=== PATIENT | female | born 1950 | race Two or more races ===

== ENCOUNTER 2018-12-21 09:32 | Emergency (ER) | payer MEDICARE, OTHER ==
[~2018-12-21] VITALS: Ht 154.9 cm; Wt 70.3 kg
[~2018-12-21 09:32] MED LIST: ADDERAL20 MG ORAL; BP pill; CYCLOBENZAPRINE10 MG ORAL; IBUPROFEN600 MG ORAL; NORCO 5-325 TA1 EAC1 ORAL; Vitamin d; ZOLOFT100 MG ORAL; [UNRECOGNIZED DRUG - REMARK]; cholesterol pill
[2018-12-21 09:40] VITALS: BP 135/114
--- NOTE | 2018-12-21 09:45 | NUR ---
ED Nurse Note: pt presents to ED with L knee pain because pt fell yesterday AM. Pt reports the pain is a 9/10. pt states that she tripped and fell, and that she also tripped and fell one month ago. pt denies LOC, there were not witnesses to her fall. pt denies feeling lightheaded, or experiencing any visual disturbances that led to the fall. There is bruising noted on her right foot. her vital signs are 134/114, 96% on RA, HR: 82.
[2018-12-21 09:50] VITALS: BP 135/114
[2018-12-21] MEDS ORDERED: HYDROcodone/Acetamin 5/325 tab ORAL ONE (10:00)
[2018-12-21] MEDS ORDERED: UNOBMED (10:09)
[2018-12-21] MEDS ORDERED: Ketorolac 60mg Inj IM ONE (10:15)
--- NOTE | 2018-12-21 10:27 | Emergency Room Report ---
History of Present Illness General Chief Complaint: Multiple Trauma/Fall Source: Patient, Medical Record Present Illness HPI Patient is a 68-year-old female presented after fall. Patient reports having injury to the left knee as well as to her right foot. She had not been vomiting. She denies any head injury. Patient states that she fell from standing. She denies other locations of pain. Allergies: Coded Allergies: NO KNOWN ALLERGIES (Unverified Allergy, Unknown, 01/31/15) Patient History Past Medical History: see triage record Now: No Reviewed Nursing Documentation: PMH: Agreed Nursing Documentation-PMH Past Medical History: No History, Except For Hx Hypertension: Yes Review of Systems All Other Systems: negative except mentioned in HPI Physical Exam Vital Signs Date Time Temp Pulse Resp B/P (MAP) Pulse Ox O2 Delivery O2 Flow Rate FiO2 12/21/18 09:40 97.5 82 16 135/114 (121) 100 Room Air Sp02 EP Interpretation: reviewed, normal General Appearance: normal inspection, well appearing, no apparent distress, alert, GCS 15 Head: atraumatic ENT: normal ENT inspection, hearing grossly normal, normal voice Neck: normal inspection, full range of motion, supple, no bony tend Respiratory: normal inspection, lungs clear, normal breath sounds, no respiratory distress, no retraction, no wheezing Cardiovascular #1: regular rate, rhythm, no edema Gastrointestinal: normal inspection, normal bowel sounds, non tender, soft, no guarding, no hernia Genitourinary: no CVA tenderness Musculoskeletal: normal inspection, back normal, normal range of motion, decreased range of motion - left knee pain, swelling, , other - right foot bruising and swelling Neurologic: normal inspection, alert, oriented x3, responsive, instrumentation chemist III-XII nml as tested, speech normal Psychiatric: normal inspection, judgement/insight normal, mood/affect normal Skin: other - bruising to both knees Medical Decision Making Diagnostic Impression: Primary Impression: Contusion of knee, left Additional Impressions: Contusion, foot Contusion of knee, right Contusion of face ER Course Patient presented for fall. Differential diagnosis include was not limited to fracture, dislocation, contusion among others. X-ray imaging of the right foot was ordered due to patient's recent fall and bruising. X-ray of left knee is also ordered. X-ray imaging foot 3 views interpreted by radiologist normal bony alignment without evident fracture. X-ray imaging of the left knee 3 views show normal bony alignment without evident fracture. Patient was noted to be ambulatory with a steady gait. The patient was given prescription for pain medications. She advised to follow-up with primary care physician for recheck. She is to return if worse. Last Vital Signs Date Time Temp Pulse Resp B/P (MAP) Pulse Ox O2 Delivery O2 Flow Rate FiO2 12/21/18 09:50 82 16 Room Air 12/21/18 09:50 97.5 135/114 100 Status: improved Disposition: HOME, SELF-CARE Condition: Stable Scripts Hydrocodone Bit/Acetaminophen 5-325* (NORCO 5-325*) 1 Each Tablet 1 TAB ORAL Q6H PRN for For Pain, #10 TAB 0 Refills Prov: Regino Auguste MD 12/21/18 Ibuprofen* (MOTRIN*) 400 Mg Tablet 400 MG ORAL Q8H, #30 TAB 0 Refills Prov: Regino Auguste MD 12/21/18 Referrals: Christopher Campbell MD (PCP) Regino Auguste MD Dec 21, 2018 10:27
[2018-12-21] MEDS ORDERED: NORCO 5-325 TA1 EACH ORAL ×2 (11:12→11:13)
[2018-12-21] MEDS ORDERED: IBUPROFEN400 MG ORAL ×2 (11:12)
--- NOTE | 2018-12-21 11:14 | Diagnostic Imaging Report ---
ADDENDUM - Added by Shabbir Parker M.D. on 12 21 2018 11:16 AM (-07:00) EXAM: XR Left Knee, 3 Views CLINICAL HISTORY: PAIN TECHNIQUE: Three views of the left knee. COMPARISON: No relevant prior studies available. FINDINGS: Bones joints: Moderate lateral compartment joint space narrowing. Small ossification superior to the patella. Tiny joint effusion. Somewhat osteopenic. No acute fracture. No dislocation. Soft tissues: Mild prepatellar soft tissues swelling. Vasculature: Atherosclerotic vascular disease. IMPRESSION: 1. No acute fracture or malalignment. 2. Atherosclerotic vascular disease. 3. Degenerative changes. EXAM: XR Left Knee, 3 Views CLINICAL HISTORY: PAIN TECHNIQUE: Three views of the left knee. COMPARISON: No relevant prior studies available. FINDINGS: Bones joints: Small inferior calcaneal spur. Joint spaces are maintained. Somewhat osteopenic. No acute fracture. No dislocation. Soft tissues: Unremarkable. Vasculature: Atherosclerotic vascular disease. IMPRESSION: 1. No acute fracture or malalignment. 2. Atherosclerotic vascular disease. 3. Small inferior calcaneal spur.
--- NOTE | 2018-12-21 11:17 | Diagnostic Imaging Report ---
EXAM: XR Right Foot Complete, 3 or More Views CLINICAL HISTORY: PAIN TECHNIQUE: Frontal, lateral and oblique views of the right foot. COMPARISON: No relevant prior studies available. FINDINGS: Bones joints: Small inferior calcaneal spur. Joint spaces are maintained. Somewhat osteopenic. No acute fracture. No dislocation. Soft tissues: Unremarkable. Vasculature: Atherosclerotic vascular disease. IMPRESSION: 1. No acute fracture or malalignment. 2. Atherosclerotic vascular disease. 3. Small inferior calcaneal spur.
--- NOTE | 2018-12-21 11:37 | NUR ---
ER DISCHARGE NOTE: Patient is cleared to be discharged per ERMD, pt is aox4, on room air, with stable vital signs. pt was given dc and prescription instructions, pt was able to verbalize understanding, pt id band removed without complications. pt is able to ambulate with steady gait. pt took all belongings.
== END 2018-12-21 11:37 | disposition home or self-care (01) ==
LOC: EMR 09:49
DX: S80.02XA Contusion of left knee, initial encounter (principal); S80.01XA Contusion of right knee, initial encounter; S00.83XA Contusion of other part of head, initial encounter; S90.31XA Contusion of right foot, initial encounter; I10 Essential (primary) hypertension; W18.30XA Fall on same level, unspecified, initial encounter; Y92.9 Unspecified place or not applicable
CPT/HCPCS: 96372; 99283